=== PATIENT | male | born 1985 | race Caucasian/White ===

== ENCOUNTER 2023-03-14 08:53 | Outpatient (AMB) | payer OTHER, SELFPAY ==
--- NOTE | 2023-03-14 09:35 | MHC.OFFWIV ---
Intake Vital Signs 03/14/23 09:40 Height 5 ft 10 in Weight 238 lb BMI 34.1 BP 132/80 Blood Pressure Location Lt brachial Position Sitting Pulse 85 Pulse Source Pulse Oximeter Temp 98.5 F Temp Source Temporal Artery Scan Pulse Oximetry (%) 94 Oxygen Delivery Method Room Air Intake Visit Reasons: [employer] flu/right ear blocked Intake Note: pt is here for c/o right ear pain, with coughing up phlem, states he has possible sinus infection Patient Tobacco Use Status: Current everyday Tobacco user Allergies Sulfa (Sulfonamide Antibiotics) [SULFA (SULFONAMIDE ANTIBIOTICS)] Allergy (Unknown, Verified 03/14/23 10:16) UNKNOWN HPI [employer] flu/right ear blocked HPI Details Patient presents for a sick visit. Reporting symptoms of sinus congestion, sore throat and difficulty swallowing. Low-grade fever. No family member is sick. No recent travel. Patient reports symptoms of malaise and fatigue. [facility] Social History Patient Tobacco Use Status: Current everyday Tobacco user Physical Exam Vital Signs: Last Vital Signs Temp 98.5 F 03/14/23 09:40 Pulse 85 03/14/23 09:40 BP 132/80 03/14/23 09:40 Pulse Ox 94 03/14/23 09:40 Oxygen Delivery Method Room Air 03/14/23 09:40 BMI result Body Mass Index 34.1 Const General: cooperative and healthy appearing Nutritional Appearance: well nourished Orientation/consciousness: patient oriented x3 Limitations: no limitations HEENT Head: Yes normal to inspection Eyes General: appearance normal, both eyes and all related structures Neck Neck: Yes normal visual inspection Chest Chest palpation & inspection: normal palpation of entire chest wall Resp Effort & Inspection: normal respiratory effort Neuro General: patient oriented x3 Assessment & Plan Assessment & Plan (1) Upper respiratory tract infection: Code(s): J06.9 - Acute upper respiratory infection, unspecified Plan: Antibiotics ordered. Increase fluid intake. Tylenol for aches and pains. If symptoms worsen, follow-up here for a recheck. Coding Level of Care Code Est Pt Level 3 (92013) Diagnoses Upper respiratory tract infection J06.9
[2023-03-14 09:40] VITALS: BP 132/80; PULSE 85; TEMP 36.9; O2SAT 94; BMI 34.1
== END 2023-03-14 10:24 | disposition home or self-care (01) ==
PROVIDERS: PCP Internal Medicine; Visit Provider Internal Medicine
DX: J06.9 Acute upper respiratory infection, unspecified (principal)
CPT/HCPCS: 99213